=== PATIENT | female | born 1965 | race African-American/Black ===

== ENCOUNTER 2019-01-04 02:01 | Emergency (ER) | payer OTHER ==
[~2019-01-04] VITALS: Ht 162.6 cm; Wt 97.5 kg
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
--- OUTSIDE RECORDS SUMMARY | 2019-01-04 02:04 | XMS REPORT | Clinical Summary ---
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 Active doxazosin (CARDURA) 4 MG Take 4 mg by 0 tablet mouth nightly. Active nortriptyline (PAMELOR) Take 25 mg by 0 25 MG capsule mouth nightly. Active Problems Not on file Social History Date Tobacco Use Types Packs/Day Years Used Never Assessed Sex Assigned at Date Recorded Not on file Industry Job Start Date Occupation Not on file Not on file Not on file Travel End Travel History Travel Start No recent travel history available. Last Filed Vital Signs Not on file Plan of Treatment Not on file Results Not on fileafter 01/03/2018 Insurance Payer Benefit Subscriber ID Type Phone Address Plan / Group BLUE CROSS[employer]BLUE [employer] BCBS PPO xxxxxxxxxxxx PPO [phone] [address] [place] [address] CHOICE
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
--- OUTSIDE RECORDS SUMMARY | 2019-01-04 02:04 | XMS REPORT | Summary of Care ---
Author Author [facility] Organization [facility] Address Unknown Phone Unavailable Encounter CAROLINA Perry(PREETI) [id number] Date(s): 03/29/16 - 03/29/[address] [facility] [address] [place] [address]- [phone] Discharge Diagnosis: Pain, rectal Discharge Disposition: Home or Self Care Attending Physician: Laura Parsons DO Vital Signs Most recent to 1 2 oldest [Reference Range]: Height 162.56 cm (03/29/16 1:46 PM) Temperature Oral 98.1 DegF 98.2 DegF [96.4-99.1 DegF] (03/29/16 4:19 PM) (03/29/16 1:46 PM) Blood Pressure 152/86 mmHg 171/127 mmHg [90-140/60-90 mmHg] *HI* *HI* (03/29/16 4:19 PM) (03/29/16 1:46 PM) Respiratory Rate 16 BRMIN 16 BRMIN [14-20 BRMIN] (03/29/16 4:19 PM) (03/29/16 1:46 PM) Peripheral Pulse 86 bpm 100 bpm Rate [60-100 bpm] (03/29/16 4:19 PM) (03/29/16 1:46 PM) Weight 110.455 kg (03/29/16 1:46 PM) Body Mass Index 41.8 m2 (03/29/16 1:46 PM) Problem List Condition Effective Dates Status Health Status Informant HTN - Active Hypertension(Confirm ed) Allergies, Adverse Reactions, Alerts Substance Reaction Severity Status NKDA Active Medications Anusol-HC 2.5% rectal cream with applicator 1 appl, ME, BID, X 7 day, # 30 gm, 0 Refill(s) Start Date: 03/29/16 Stop Date: 04/05/16 Status: Ordered Colace 100 mg oral capsule 100 mg=1 cap, PO, BID, PRN Constipation, # 60 cap, 0 Refill(s) Start Date: 03/29/16 Status: Ordered Tylenol with Codeine #3 oral tablet 1 tab, PO, Q6H, PRN Pain Score 4-6, X 5 day, # 30 tab, 0 Refill(s) Start Date: 03/29/16 Stop Date: 04/03/16 Status: Ordered Results ELECTROLYTES Most recent to 1 oldest [Reference Range]: Sodium Lvl [135-145 139 mEq/L mEq/L] (03/29/16 2:14 PM) Potassium Lvl 3.4 mEq/L [3.5-5.1 mEq/L] *LOW* (03/29/16 2:14 PM) Chloride Lvl [95-109 103 mEq/L mEq/L] (03/29/16 2:14 PM) CO2 [24-32 mEq/L] 30 mEq/L (03/29/16 2:14 PM) AGAP [10.0-20.0 9.4 mEq/L mEq/L] *LOW* (03/29/16 2:14 PM) CHEM PANEL Most recent to 1 oldest [Reference Range]: Creatinine Lvl 1.10 mg/dL [0.50-1.40 mg/dL] (03/29/16 2:14 PM) eGFR 69 mL/min/1.73m2 1 *NA* (03/29/16 2:14 PM) BUN [7-22 mg/dL] 9 mg/dL (03/29/16 2:14 PM) B/C Ratio [6-25] 8 (03/29/16 2:14 PM) Glucose Lvl [70-99 99 mg/dL mg/dL] (03/29/16 2:14 PM) Total Protein 7.9 g/dL [6.4-8.4 g/dL] (03/29/16 2:14 PM) Albumin Lvl [3.5-5.0 3.4 g/dL g/dL] *LOW* (03/29/16 2:14 PM) Globulin [2.7-4.2 4.5 g/dL g/dL] *HI* (03/29/16 2:14 PM) A/G Ratio [0.7-1.6] 0.8 (03/29/16 2:14 PM) Calcium Lvl 8.7 mg/dL [8.5-10.5 mg/dL] (03/29/16 2:14 PM) ALT [0-65 unit/L] 14 unit/L (03/29/16 2:14 PM) AST [0-37 unit/L] 6 unit/L (03/29/16 2:14 PM) Alk Phos [39-136 97 unit/L unit/L] (03/29/16 2:14 PM) Bili Total [0.2-1.3 0.5 mg/dL mg/dL] (03/29/16 2:14 PM) 1Result Comment: The eGFR is calculated using the [...] from the National Kid[employer] Disease Education Program ( NKDEP) which additionally recommends that when the eGFR is used in patients with extremes of body mass index for purposes of drug dosing, the eGFR should be mul tiplied by the estimated BMI. URINE CHEM Most recent to 1 oldest [Reference Range]: U Preg [Negative] Negative (03/29/16 2:14 PM) URINE AND STOOL Most recent to 1 oldest [Reference Range]: UA Turbidity [Clear] Marked *ABN* (03/29/16 2:14 PM) UA Color [Yellow] Yellow *NA* (03/29/16 2:14 PM) UA pH [5.0-8.0] 5.0 (03/29/16 2:14 PM) UA Spec Grav 1.016 [<=1.030] (03/29/16 2:14 PM) UA Glucose [Negative Negative mg/dL mg/dL] *NA* (03/29/16 2:14 PM) UA Blood [Negative] Negative (03/29/16 2:14 PM) UA Ketones [Negative Negative mg/dL mg/dL] *NA* (03/29/16 2:14 PM) UA Protein [Negative Negative mg/dL mg/dL] (03/29/16 2:14 PM) UA Urobilinogen <=1.0 mg/dL [0.1-1.0 mg/dL] *NA* (03/29/16 2:14 PM) UA Bili [Negative] Negative *NA* (03/29/16 2:14 PM) UA Leuk Est Trace [Negative] *ABN* (03/29/16 2:14 PM) UA Nitrite Negative [Negative] (03/29/16 2:14 PM) UA WBC [0-5 /HPF] 1 /HPF (03/29/16 2:14 PM) UA RBC [0-2 /HPF] 2 /HPF (03/29/16 2:14 PM) UA Bacteria [None Occasional /HPF Seen /HPF] *NA* (03/29/16 2:14 PM) UA Sq Epi [Few /LPF] Many /LPF *ABN* (03/29/16 2:14 PM) UA Mucus [None Seen Few /LPF /LPF] *NA* (03/29/16 2:14 PM) HEMATOLOGY Most recent to 1 oldest [Reference Range]: WBC [3.7-10.4 K/CMM] 8.4 K/CMM (03/29/16 2:14 PM) RBC [4.20-5.40 4.69 M/CMM M/CMM] (03/29/16 2:14 PM) Hgb [12.0-16.0 g/dL] 12.8 g/dL (03/29/16 2:14 PM) Hct [36.0-48.0 %] 38.8 % (03/29/16 2:14 PM) MCV [80.0-98.0 fL] 82.8 fL (03/29/16 2:14 PM) MCH [27.0-31.0 pg] 27.4 pg (03/29/16 2:14 PM) MCHC [32.0-36.0 33.1 g/dL g/dL] (03/29/16 2:14 PM) RDW [11.5-14.5 %] 14.3 % (03/29/16 2:14 PM) Platelet [133-450 252 K/CMM K/CMM] (03/29/16 2:14 PM) MPV [7.4-10.4 fL] 8.3 fL (03/29/16 2:14 PM) Segs [45.0-75.0 %] 50.8 % (03/29/16 2:14 PM) Lymphocytes 34.4 % [20.0-40.0 %] (03/29/16 2:14 PM) Monocytes [2.0-12.0 8.1 % %] (03/29/16 2:14 PM) Eosinophils [0.0-4.0 5.9 % %] *HI* (03/29/16 2:14 PM) Basophils [0.0-1.0 0.8 % %] (03/29/16 2:14 PM) Segs-Bands # 4.3 K/CMM [1.5-8.1 K/CMM] (03/29/16 2:14 PM) Lymphocytes # 2.9 K/CMM [1.0-5.5 K/CMM] (03/29/16 2:14 PM) Monocytes # [0.0-0.8 0.7 K/CMM K/CMM] (03/29/16 2:14 PM) Eosinophils # 0.5 K/CMM [0.0-0.5 K/CMM] (03/29/16 2:14 PM) Basophils # [0.0-0.2 0.1 K/CMM K/CMM] (03/29/16 2:14 PM) Immunizations No data available for this section Procedures No data available for this section Social History Social History Type Response Smoking Status Never smoker; Exposure to Tobacco Smoke None; Cigarette Smoking Last 365 Days No; Reg Smoking Cessation Counseling No Assessment and Plan No data available for this section
--- OUTSIDE RECORDS SUMMARY | 2019-01-04 02:04 | XMS REPORT | Summary of Care ---
Author Author [facility] Organization [facility] Address Unknown Phone Unavailable Encounter [facility] Valeriantr_deanna(FIN) [id number] Date(s): 09/14/17 - 09/14/17 [facility] [address] [place] [address]- Discharge Disposition: Home or Self Care Attending Physician: Aniya Shabazz MD Referring Physician: Aniya Shabazz MD Vital Signs No data available for this section Problem List Condition Effective Dates Status Health Status Informant HTN - Active Hypertension(Confirm ed) Allergies, Adverse Reactions, Alerts Substance Reaction Severity Status NKDA Active Medications No data available for this section Results No data available for this section Immunizations No data available for this section Procedures Procedure Date Related Diagnosis Body Site Status ACL - Repair of anterior cruciate ligament1 Completed 1R knee Social History Social History Type Response Smoking Status Never smoker; Exposure to Tobacco Smoke None; Cigarette Smoking Last 365 Days No; Reg Smoking Cessation Counseling No entered on: 11/16/16 Assessment and Plan No data available for this section
--- OUTSIDE RECORDS SUMMARY | 2019-01-04 02:04 | XMS REPORT | Summary of Care ---
Author Author [facility] Organization [facility] Address Unknown Phone Unavailable Encounter CAROLINA Perry(PREETI) [id number] Date(s): 11/16/16 - 11/17/16 [facility] [address] [place] [address]- [phone] Discharge Diagnosis: Sprain of ankle, right Discharge Diagnosis: Chronic hypertension Discharge Disposition: Home or Self Care Attending Physician: Umesh Lara MD Vital Signs Most recent to 1 2 oldest [Reference Range]: Height 162.56 cm (11/16/16 10:52 PM) Temperature Oral 97.7 DegF 98.9 DegF [96.4-99.1 DegF] (11/17/16 1:25 AM) (11/16/16 10:52 PM) Blood Pressure 136/92 mmHg 146/97 mmHg [90-140/60-90 mmHg] (11/17/16 1:25 AM) *HI* (11/16/16 10:52 PM) Respiratory Rate 18 BRMIN 18 BRMIN [14-20 BRMIN] (11/17/16 1:25 AM) (11/16/16 10:52 PM) Peripheral Pulse 74 bpm 91 bpm Rate [60-100 bpm] (11/17/16 1:25 AM) (11/16/16 10:52 PM) Weight 113.636 kg (11/16/16 10:52 PM) Body Mass Index 43 m2 (11/16/16 10:52 PM) Problem List Condition Effective Dates Status Health Status Informant HTN - Active Hypertension(Confirm ed) Allergies, Adverse Reactions, Alerts Substance Reaction Severity Status NKDA Active Medications ketOROLAC 30 mg, 1 mL, Route: IM, Drug form: INJ, ONCE, Dosing Weight 113.636, kg, Priorit y: STAT, Start date: 11/17/16 0:29:00 CDT, Stop date: 11/17/16 0:29:00 CDT Notes: (Same as:Toradol) IV bolus must be given >15 seconds. Give IM administration slowly and deeply into the muscle.Not for use > 4 days MEDICATION WASTE Product Size: 30 mgProduct Wasted: ___ mg Start Date: 11/17/16 Stop Date: 11/17/16 Status: Completed Naprosyn 500 mg oral tablet 500 mg=1 tab, PO, BID, PRN Pain, X 7 day, # 14 tab, 0 Refill(s) Start Date: 11/17/16 Stop Date: 11/24/16 Status: Ordered Results No data available for this section Immunizations No data available for this section Procedures Procedure Date Related Diagnosis Body Site ACL - Repair of anterior cruciate ligament1 1R knee Social History Social History Type Response Smoking Status Never smoker; Exposure to Tobacco Smoke None; Cigarette Smoking Last 365 Days No; Reg Smoking Cessation Counseling No Assessment and Plan No data available for this section
--- OUTSIDE RECORDS SUMMARY | 2019-01-04 02:05 | XMS REPORT | Summary of Care ---
Author Author [facility] Organization [facility] Address Unknown Phone Unavailable Encounter [facility] Valeriantr_deanna(FIN) [id number] Date(s): 09/14/17 - 09/14/17 [facility] [address] [place] [address]- [phone] Discharge Disposition: Home or Self Care Attending [...]
[2019-01-04] MEDS ORDERED: IBUPROFEN 600 MG TAB PO STA (02:16)
[2019-01-04] MEDS ORDERED: NAPROSYN500 MG PO (02:18)
[2019-01-04] MEDS ORDERED: CYCLOBENZAPRINE5 MG PO (02:18)
[2019-01-04] MEDS ORDERED: IBUPROFEN 200 MG TAB ONE (02:24)
[2019-01-04] MEDS ORDERED: ULTRAM50 MG PO (02:36)
--- NOTE | 2019-01-04 02:58 | Diagnostic Imaging Report ---
Exam: Right knee 3 views History: Pain, status post fall Comparison: None. Findings: No acute, displaced fracture or dislocation. Mild medial compartment joint space narrowing and marginal osteophytosis. No definite joint effusion. Soft tissues are unremarkable. Impression: No acute osseous abnormality. Mild medial compartment degenerative arthrosis. Signed by: Dr. Chris Steel M.D. on 01/04/2019 2:54 AM
[2019-01-04 03:04] VITALS: BP 176/101
== END 2019-01-04 03:06 | disposition home or self-care (01) ==
LOC: FSED 02:01
DX: M54.5 Low back pain (principal); S39.012A Strain of muscle, fascia and tendon of lower back, initial encounter; S80.01XA Contusion of right knee, initial encounter; W01.0XXA Fall on same level from slipping, tripping and stumbling without subsequent striking against object, initial encounter; Y92.488 Other paved roadways as the place of occurrence of the external cause; I10 Essential (primary) hypertension
CPT/HCPCS: 99283